=== PATIENT | male | born 1955 | race Caucasian/White ===

== ENCOUNTER 2016-11-22 03:26 | Emergency (ER) | payer OTHER ==
[2016-11-22] MEDS ORDERED: BENADRYL ONE (03:36)
[2016-11-22] MEDS ORDERED: DECADRON ONE ×2 (03:36→03:37)
[2016-11-22] MEDS ORDERED: PEPCID IV ONE ×2 (03:36→04:15)
[2016-11-22] MEDS ORDERED: BENADRYL IM ONE (04:13)
[2016-11-22] MEDS ORDERED: DECADRON IM ONE (04:14)
--- NOTE | 2016-11-22 08:15 | Emergency Department Report ---
ED ENT HPI - General Chief complaint: Dental/Oral Stated complaint: TONGUE SWELLING, COLD SYMPTOMS Time Seen by Provider: 11/22/16 07:43 Source: patient, family Mode of arrival: Ambulatory Limitations: No Limitations - History of Present Illness Initial comments: 61 y/o male complain of swollen tongue on arrived that has resolved with no difficulty in breathing .pt complain of having sinus pain across the frontal . and nasal congestion . Onset/Timin -: hour(s) - Related Data Home Medications Medication Instructions Recorded Confirmed Last Taken Hydralazine HCl [hydrALAZINE] 25 mg PO QDAY 10/25/14 01/05/15 01/05/15 Enalapril/Hydrochlorothiazide 5 mg PO DAILY 01/05/15 01/05/15 01/04/15 [Enalapril-Hctz 5-12.5 mg] Prednisone 40 mg PO 4XW 01/05/15 01/05/15 01/05/15 Pyridostigmine [Mestinon] 120 mg PO QID 01/05/15 01/05/15 01/04/15 Previous Rx's Medication Instructions Recorded Last Taken Type HYDROcodone/APAP 5-325 [[place] 1 each PO Q8HR PRN #20 tablet 01/05/15 Unknown Rx 5-325 mg TAB] SILVER sulfADIAZINE 400 GRAM 1 applicatio TP TID #1 jar 01/05/15 Unknown Rx [Thermazene 400 Gram] Albuterol Sulfate [Ventolin HFA] 2 puff IH Q4H PRN #1 hfa.aer.ad 11/15/15 Unknown Rx Azithromycin [Zithromax Z-ITALO] 1 dose PO DAILY 5 Days 11/15/15 Unknown Rx guaiFENesin/DEXTROMETHORPHAN 1 tab PO BID PRN #30 tab 11/15/15 Unknown Rx [Mucinex DM ER 600-30 mg TAB] Amoxicillin/K Clav Tab [Augmentin 1 tab PO Q12HR #14 tab 11/22/16 Unknown Rx 875 mg] Cimetidine (Nf) [Tagamet (Nf)] 400 mg PO BID #6 tablet 11/22/16 Unknown Rx predniSONE [Deltasone] 60 mg PO QDAY #3 tab 11/22/16 Unknown Rx Allergies Allergy/AdvReac Type Severity Reaction Status Date / Time zolpidem tartrate Allergy Severe Swelling, Verified 05/06/16 07:04 [From Ambien] BAD MENTAL REACTION ED Dental HPI - General Chief complaint: Dental/Oral Stated complaint: TONGUE SWELLING, COLD SYMPTOMS Time Seen by Provider: 11/22/16 07:43 Source: patient, family Mode of arrival: Ambulatory Limitations: No Limitations - Related Data Home Medications Medication Instructions Recorded Confirmed Last Taken Hydralazine HCl [hydrALAZINE] 25 mg PO QDAY 10/25/14 01/05/15 01/05/15 Enalapril/Hydrochlorothiazide 5 mg PO DAILY 01/05/15 01/05/15 01/04/15 [Enalapril-Hctz 5-12.5 mg] Prednisone 40 mg PO 4XW 01/05/15 01/05/15 01/05/15 Pyridostigmine [Mestinon] 120 mg PO QID 01/05/15 01/05/15 01/04/15 Previous Rx's Medication Instructions Recorded Last Taken Type HYDROcodone/APAP 5-325 [[place] 1 each PO Q8HR PRN #20 tablet 01/05/15 Unknown Rx 5-325 mg TAB] SILVER sulfADIAZINE 400 GRAM 1 applicatio TP TID #1 jar 01/05/15 Unknown Rx [Thermazene 400 Gram] Albuterol Sulfate [Ventolin HFA] 2 puff IH Q4H PRN #1 hfa.aer.ad 11/15/15 Unknown Rx Azithromycin [Zithromax Z-ITALO] 1 dose PO DAILY 5 Days 11/15/15 Unknown Rx guaiFENesin/DEXTROMETHORPHAN 1 tab PO BID PRN #30 tab 11/15/15 Unknown Rx [Mucinex DM ER 600-30 mg TAB] Amoxicillin/K Clav Tab [Augmentin 1 tab PO Q12HR #14 tab 11/22/16 Unknown Rx 875 mg] Cimetidine (Nf) [Tagamet (Nf)] 400 mg PO BID #6 tablet 11/22/16 Unknown Rx predniSONE [Deltasone] 60 mg PO QDAY #3 tab 11/22/16 Unknown Rx Allergies Allergy/AdvReac Type Severity Reaction Status Date / Time zolpidem tartrate Allergy Severe Swelling, Verified 05/06/16 07:04 [From Ambien] BAD MENTAL REACTION ED Review of Systems ROS: Stated complaint: TONGUE SWELLING, COLD SYMPTOMS Other details as noted in HPI Constitutional: denies: chills, fever Eyes: denies: eye pain, eye discharge, vision change ENT: congestion. denies: ear pain, throat pain Respiratory: denies: cough, shortness of breath, wheezing Cardiovascular: denies: chest pain, palpitations Endocrine: no symptoms reported Gastrointestinal: denies: abdominal pain, nausea, diarrhea Genitourinary: denies: urgency, dysuria Musculoskeletal: denies: back pain, joint swelling, arthralgia Skin: denies: rash, lesions Neurological: headache. denies: weakness, paresthesias Psychiatric: denies: anxiety, depression Hematological/Lymphatic: denies: easy bleeding, easy bruising ED Past Medical Hx - Past Medical History Previous Medical History?: Yes Hx Hypertension: Yes Hx CVA: No Hx Diabetes: No Hx Renal Disease: No Hx Arthritis: No Hx Seizures: No Hx Asthma: No Additional medical history: Myasthenia gravis - Surgical History Past Surgical History?: Yes Hx Pacemaker: No Additional Surgical History: myasthenia gravis surgery - Social History Smoking Status: Current Every Day Smoker Substance Use Type: None - Medications Home Medications: Home Medications Medication Instructions Recorded Confirmed Last Taken Type Hydralazine HCl [hydrALAZINE] 25 mg PO QDAY 10/25/14 01/05/15 01/05/15 History Enalapril/Hydrochlorothiazide 5 mg PO DAILY 01/05/15 01/05/15 01/04/15 History [Enalapril-Hctz 5-12.5 mg] HYDROcodone/APAP 5-325 [[place] 1 each PO Q8HR PRN #20 tablet 01/05/15 Unknown Rx 5-325 mg TAB] Prednisone 40 mg PO 4XW 01/05/15 01/05/15 01/05/15 History Pyridostigmine [Mestinon] 120 mg PO QID 01/05/15 01/05/15 01/04/15 History SILVER sulfADIAZINE 400 GRAM 1 applicatio TP TID #1 jar 01/05/15 Unknown Rx [Thermazene 400 Gram] Albuterol Sulfate [Ventolin HFA] 2 puff IH Q4H PRN #1 hfa.aer.ad 11/15/15 Unknown Rx Azithromycin [Zithromax Z-ITALO] 1 dose PO DAILY 5 Days 01/01/16 Unknown Rx guaiFENesin/DEXTROMETHORPHAN 1 tab PO BID PRN #30 tab 11/15/15 Unknown Rx [Mucinex DM ER 600-30 mg TAB] Amoxicillin/K Clav Tab [Augmentin 1 tab PO Q12HR #14 tab 11/22/16 Unknown Rx 875 mg] Cimetidine (Nf) [Tagamet (Nf)] 400 mg PO BID #6 tablet 11/22/16 Unknown Rx predniSONE [Deltasone] 60 mg PO QDAY #3 tab 11/22/16 Unknown Rx ED Physical Exam - General Limitations: No Limitations General appearance: alert, in no apparent distress - Head Head exam: Present: atraumatic, normocephalic - Eye Eye exam: Present: normal appearance, PERRL Pupils: Present: normal accommodation - ENT ENT exam: Present: mucous membranes moist - Expanded ENT Exam Expanded TM/Canal exam: Effusion: Right TM, Mastoid Tenderness: Right TM, Left TM ( frontal ) Mouth exam: Present: normal external inspection, tongue normal. Absent: drooling, trismus, muffled voice, tongue elevation Throat exam: Positive: tonsillar erythema, other (post nasal drip ) - Neck Neck exam: Present: normal inspection - Respiratory Respiratory exam: Present: normal lung sounds bilaterally. Absent: respiratory distress - Cardiovascular Cardiovascular Exam: Present: regular rate, normal rhythm. Absent: systolic murmur, diastolic murmur, rubs, gallop - GI/Abdominal GI/Abdominal exam: Present: soft, normal bowel sounds - Rectal Rectal exam: Present: deferred - Extremities Exam Extremities exam: Present: normal inspection - Back Exam Back exam: Present: normal inspection - Neurological Exam Neurological exam: Present: alert, oriented X3 - Psychiatric Psychiatric exam: Present: normal affect, normal mood - Skin Skin exam: Present: warm, dry, intact, normal color. Absent: rash ED Course Vital Signs 11/22/16 03:30 Temperature 97.7 F Pulse Rate 61 Respiratory 20 Rate Blood Pressure 145/81 O2 Sat by Pulse 98 Oximetry ED Medical Decision Making - Medical Decision Making allergic reaction resolved after given Decadron , Pepcid,and benadryl in triage sinusitis pt state he was treated in the past for sinusitis Critical care attestation.: If time is entered above; I have spent that time in minutes in the direct care of this critically ill patient, excluding procedure time. ED Disposition Clinical Impression: Allergic reaction Qualifiers: Encounter type: initial encounter Qualified Code(s): T78.40XA - Allergy, unspecified, initial encounter Sinusitis Qualifiers: Sinusitis location: frontal Chronicity: acute Recurrence: recurrent Qualified Code(s): J01.11 - Acute recurrent frontal sinusitis Disposition: DISCHARGED TO HOME OR SELFCARE Is pt being admited?: No Does the pt Need Aspirin: No Condition: Stable Instructions: Sinusitis (ED) Additional Instructions: follow up with primary care doctor Prescriptions: Amoxicillin/K Clav Tab [Augmentin 875 mg] 1 tab PO Q12HR #14 tab predniSONE [Deltasone] 60 mg PO QDAY #3 tab Cimetidine (Nf) [Tagamet (Nf)] 400 mg PO BID #6 tablet Time of Disposition: 08:24
[2016-11-22 08:35] VITALS: BP 145/85
== END 2016-11-22 08:35 | disposition home or self-care (01) ==
LOC: ED 03:26
DX: T78.40XA Allergy, unspecified, initial encounter (principal); J01.11 Acute recurrent frontal sinusitis; X58.XXXA Exposure to other specified factors, initial encounter; I10 Essential (primary) hypertension; F17.200 Nicotine dependence, unspecified, uncomplicated; Z88.8 Allergy status to other drugs, medicaments and biological substances
CPT/HCPCS: 96372; 96374; 99282; J1100; J1200

== ENCOUNTER 2017-05-22 14:14 | Inpatient (IN) | payer OTHER ==
[2017-05-22] MEDS ORDERED: NACL 0.9% 1000 ML 1,000 ML IV ONE (14:21)
[2017-05-22 14:39] LABS: Basophils % (Auto) 0.7 % (0.0-1.8); Eosinophils % (Auto) 3.8 % (0.0-4.3); Hematocrit 42.9 % (35.5-45.6); Hemoglobin 14.5 gm/dl (11.8-15.2); Mean Corpuscular HGB Conc 34 % (32-34); Mean Corpuscular Hemoglobin 34 pg (28-32); Mean Corpuscular Volume 101 fl (84-94); Platelet Count 207 K/mm3 (140-440); Red Blood Count 4.24 M/mm3 (3.65-5.03); Red Cell Distribution Width 17.7 % (13.2-15.2); White Blood Count 6.8 K/mm3 (4.5-11.0)
[2017-05-22 14:48] LABS: INR 1.86 (0.87-1.13)
[2017-05-22 14:49] LABS: Partial Thromboplastin Time 50.4 Sec. (24.2-36.6)
[2017-05-22 15:35] LABS: Alanine Aminotransferase 14 units/L (7-56); Albumin 4.4 g/dL (3.9-5); Albumin/Globulin Ratio 1.4 %; Alkaline Phosphatase 111 units/L (35-129); Anion Gap 18 mmol/L; Blood Urea Nitrogen 19 mg/dL (9-20); Calcium 9.4 mg/dL (8.4-10.2); Carbon Dioxide 26 mmol/L (22-30); Chloride 101.9 mmol/L (98-107); Glucose 96 mg/dL (75-100); Lipase 49 units/L (13-60); Potassium 4.9 mmol/L (3.6-5.0); Sodium 141 mmol/L (137-145); Total Protein 7.6 g/dL (6.3-8.2)
--- NOTE | 2017-05-22 16:14 | Emergency Department Report ---
ED GI Bleed HPI - General Chief complaint: GI Bleed Stated complaint: RECTAL BLEEDING Time Seen by Provider: 05/22/17 16:01 Source: patient Mode of arrival: Ambulatory Limitations: No Limitations - History of Present Illness Initial comments: Patient is a 62-year-old male with a history of A. fib on Xarelto here with a lower GI bleed. Patient had a colonoscopy which showed internal hemorrhoids and multiple diverticuli without diverticulitis on . He started bleeding today. He is not having any lightheadedness or dizziness. He denies abdominal pain. He has no fevers. He appears otherwise well. He was unable to tell me how many episodes but says it has been several. complaint: gross hematochezia -: Sudden Radiation: none Quality: painless Consistency: intermittent Improves with: none Worsens with: none Context: blood thinners Associated Symptoms: denies other symptoms. denies: abdominal pain, nausea, vomiting, loss of appetite, malaise, easy bruising, rash, syncope, weakness, other - Related Data Home Medications Medication Instructions Recorded Confirmed Last Taken Hydralazine HCl [hydrALAZINE] 25 mg PO QDAY 10/25/14 01/05/15 01/05/15 Enalapril/Hydrochlorothiazide 5 mg PO DAILY 01/05/15 01/05/15 01/04/15 [Enalapril-Hctz 5-12.5 mg] Prednisone 40 mg PO 4XW 01/05/15 01/05/15 01/05/15 Pyridostigmine [Mestinon] 120 mg PO QID 01/05/15 01/05/15 01/04/15 Previous Rx's Medication Instructions Recorded Last Taken Type HYDROcodone/APAP 5-325 [[place] 1 each PO Q8HR PRN #20 tablet 01/05/15 Unknown Rx 5-325 mg TAB] SILVER sulfADIAZINE 400 GRAM 1 applicatio TP TID #1 jar 01/05/15 Unknown Rx [Thermazene 400 Gram] Albuterol Sulfate [Ventolin HFA] 2 puff IH Q4H PRN #1 hfa.aer.ad 11/15/15 Unknown Rx Azithromycin [Zithromax Z-ITALO] 1 dose PO DAILY 5 Days 11/15/15 Unknown Rx guaiFENesin/DEXTROMETHORPHAN 1 tab PO BID PRN #30 tab 11/15/15 Unknown Rx [Mucinex DM ER 600-30 mg TAB] Amoxicillin/K Clav Tab [Augmentin 1 tab PO Q12HR #14 tab 11/22/16 Unknown Rx 875 mg] Cimetidine (Nf) [Tagamet (Nf)] 400 mg PO BID #6 tablet 11/22/16 Unknown Rx predniSONE [Deltasone] 60 mg PO QDAY #3 tab 11/22/16 Unknown Rx Allergies Allergy/AdvReac Type Severity Reaction Status Date / Time zolpidem tartrate Allergy Severe Swelling, Verified 05/06/16 07:04 [From Ebony] BAD MENTAL REACTION ED Review of Systems ROS: Stated complaint: RECTAL BLEEDING Other details as noted in HPI Comment: All other systems reviewed and negative Constitutional: denies: chills, fever, malaise Respiratory: denies: cough, orthopnea Cardiovascular: denies: chest pain, palpitations Gastrointestinal: denies: abdominal pain, nausea, constipation, hematemesis Musculoskeletal: denies: back pain, arthralgia Skin: denies: rash, change in hair/nails Neurological: denies: headache, weakness ED Past Medical Hx - Past Medical History Previous Medical History?: Yes Hx Hypertension: Yes Hx CVA: No Hx Diabetes: No Hx Renal Disease: No Hx Arthritis: No Hx Seizures: No Hx Asthma: No Additional medical history: Myasthenia gravis - Surgical History Past Surgical History?: Yes Hx Pacemaker: No Additional Surgical History: myasthenia gravis surgery, Colonoscopy - Family History Family history: no significant - Social History Smoking Status: Current Every Day Smoker Substance Use Type: Prescribed - Medications Home Medications: Home Medications Medication Instructions Recorded Confirmed Last Taken Type Hydralazine HCl [hydrALAZINE] 25 mg PO QDAY 10/25/14 01/05/15 01/05/15 History Enalapril/Hydrochlorothiazide 5 mg PO DAILY 01/05/15 01/05/15 01/04/15 History [Enalapril-Hctz 5-12.5 mg] HYDROcodone/APAP 5-325 [[place] 1 each PO Q8HR PRN #20 tablet 01/05/15 Unknown Rx 5-325 mg TAB] Prednisone 40 mg PO 4XW 01/05/15 01/05/15 01/05/15 History Pyridostigmine [Mestinon] 120 mg PO QID 01/05/15 01/05/15 01/04/15 History SILVER sulfADIAZINE 400 GRAM 1 applicatio TP TID #1 jar 01/05/15 Unknown Rx [Thermazene 400 Gram] Albuterol Sulfate [Ventolin HFA] 2 puff IH Q4H PRN #1 hfa.aer.ad 11/15/15 Unknown Rx Azithromycin [Zithromax Z-ITALO] 1 dose PO DAILY 5 Days 11/15/15 Unknown Rx guaiFENesin/DEXTROMETHORPHAN 1 tab PO BID PRN #30 tab 11/15/15 Unknown Rx [Mucinex DM ER 600-30 mg TAB] Amoxicillin/K Clav Tab [Augmentin 1 tab PO Q12HR #14 tab 11/22/16 Unknown Rx 875 mg] Cimetidine (Nf) [Tagamet (Nf)] 400 mg PO BID #6 tablet 11/22/16 Unknown Rx predniSONE [Deltasone] 60 mg PO QDAY #3 tab 11/22/16 Unknown Rx ED Physical Exam - General Limitations: No Limitations General appearance: alert, in no apparent distress - Head Head exam: Present: atraumatic, normocephalic - Eye Eye exam: Present: normal appearance - ENT ENT exam: Present: mucous membranes moist - Neck Neck exam: Present: normal inspection - Respiratory Respiratory exam: Present: normal lung sounds bilaterally. Absent: respiratory distress - Cardiovascular Cardiovascular Exam: Present: regular rate, normal rhythm. Absent: systolic murmur, diastolic murmur, rubs, gallop - GI/Abdominal GI/Abdominal exam: Present: soft, normal bowel sounds - Rectal Rectal exam: Present: deferred - Extremities Exam Extremities exam: Present: normal inspection - Back Exam Back exam: Present: normal inspection - Neurological Exam Neurological exam: Present: alert, oriented X3 - Psychiatric Psychiatric exam: Present: normal affect, normal mood - Skin Skin exam: Present: warm, dry, intact, normal color. Absent: rash ED Course Vital Signs 05/22/17 14:18 Temperature 98.7 F Pulse Rate 47 L Respiratory 20 Rate Blood Pressure 168/82 O2 Sat by Pulse 98 Oximetry ED Medical Decision Making - Lab Data Result diagrams: 05/22/17 14:26 05/22/17 14:26 Labs 05/22/17 05/22/17 05/22/17 14:25 14:26 14:26 WBC 6.8 RBC 4.24 Hgb 14.5 Hct 42.9 MCV 101 H MCH 34 H MCHC 34 RDW 17.7 H Plt Count 207 Lymph % (Auto) 16.0 [place] % (Auto) 9.2 H Eos % (Auto) 3.8 Baso % (Auto) 0.7 Lymph # 1.1 L [place] # 0.6 Eos # 0.3 Baso # 0.0 Seg Neutrophils % 70.3 H Seg Neutrophils # 4.8 PT 22.4 H INR 1.86 H APTT 50.4 H Sodium Potassium Chloride Carbon Dioxide Anion Gap BUN Creatinine Estimated GFR BUN/Creatinine Ratio Glucose Calcium Total Bilirubin AST ALT Alkaline Phosphatase Total Protein Albumin Albumin/Globulin Ratio Lipase Blood Type O POSITIVE Antibody Screen TNR 05/22/17 14:26 WBC RBC Hgb Hct MCV MCH MCHC RDW Plt Count Lymph % (Auto) [place] % (Auto) Eos % (Auto) Baso % (Auto) Lymph # [place] # Eos # Baso # Seg Neutrophils % Seg Neutrophils # PT INR APTT Sodium 141 Potassium 4.9 Chloride 101.9 Carbon Dioxide 26 Anion Gap 18 BUN 19 Creatinine 1.0 Estimated GFR > 60 BUN/Creatinine Ratio 19.00 Glucose 96 Calcium 9.4 Total Bilirubin 0.80 AST 30 ALT 14 Alkaline Phosphatase 111 Total Protein 7.6 Albumin 4.4 Albumin/Globulin Ratio 1.4 Lipase 49 Blood Type Antibody Screen - Medical Decision Making 62-year-old male with a history of anticoagulation with lower GI bleed. Has had several episodes today. Last episode just prior to arrival. He is hemodynamically stable and has a stable hemoglobin and hematocrit. Plan to observe in the ER for the next hour to 2 hours and will reassess. Critical care attestation.: If time is entered above; I have spent that time in minutes in the direct care of this critically ill patient, excluding procedure time. ED Disposition Clinical Impression: GI bleed, Atrial fibrillation Disposition: OP ADMIT IP TO THIS HOSP Is pt being admited?: Yes Condition: Stable
--- NOTE | 2017-05-22 16:32 | History and Physical Report ---
History of Present Illness Chief complaint: I see blood in the toilet History of present illness: 62 YO Male with A Fib on Anticoagulation, HTN, Diverticulosis, Internal Hemorrhoids, Myasthenia Gravis, Nicotine Dependence presents to ED for evaluation. Pt states that he has experienced approximately 5-7 episodes BRBPR over the past 1 day, with worsening bleeding over the past 3 hours. Pt denies fever, chills, CP, Palpitations, NVD, Syncope, Abdominal pain, consumption of food/water from new or different sources, syncope, or recent ill contacts. Past History Past Medical History: atrial fib, hypertension, other (MG, Nicotine Dependence) Past Surgical History: Other (colonoscopy) Social history: , lives with family, smoking. denies: alcohol abuse, prescription drug abuse Family history: no significant family history, other (reviewed) Medications and Allergies Allergies Allergy/AdvReac Type Severity Reaction Status Date / Time zolpidem tartrate Allergy Severe Swelling, Verified 05/06/16 07:04 [From Ambien] BAD MENTAL REACTION Home Medications Medication Instructions Recorded Confirmed Last Taken Type Hydralazine HCl [hydrALAZINE] 25 mg PO QDAY 10/25/14 01/05/15 01/05/15 History Enalapril/Hydrochlorothiazide 5 mg PO DAILY 01/05/15 01/05/15 01/04/15 History [Enalapril-Hctz 5-12.5 mg] HYDROcodone/APAP 5-325 [[place] 1 each PO Q8HR PRN #20 tablet 01/05/15 Unknown Rx 5-325 mg TAB] Prednisone 40 mg PO 4XW 01/05/15 01/05/15 01/05/15 History Pyridostigmine [Mestinon] 120 mg PO QID 01/05/15 01/05/15 01/04/15 History SILVER sulfADIAZINE 400 GRAM 1 applicatio TP TID #1 jar 01/05/15 Unknown Rx [Thermazene 400 Gram] Albuterol Sulfate [Ventolin HFA] 2 puff IH Q4H PRN #1 hfa.aer.ad 11/15/15 Unknown Rx Azithromycin [Zithromax Z-ITALO] 1 dose PO DAILY 5 Days 11/15/15 Unknown Rx guaiFENesin/DEXTROMETHORPHAN 1 tab PO BID PRN #30 tab 11/15/15 Unknown Rx [Mucinex DM ER 600-30 mg TAB] Amoxicillin/K Clav Tab [Augmentin 1 tab PO Q12HR #14 tab 11/22/16 Unknown Rx 875 mg] Cimetidine (Nf) [Tagamet (Nf)] 400 mg PO BID #6 tablet 11/22/16 Unknown Rx predniSONE [Deltasone] 60 mg PO QDAY #3 tab 11/22/16 Unknown Rx Active Meds: Active Medications Sodium Chloride (Nacl 0.9% 1000 Ml) 1,000 mls @ 250 mls/hr IV ONCE ONE Stop: 05/22/17 18:20 Review of Systems All systems: negative Constitutional: other (rectal bleeding) Exam - Constitutional Vitals: Temp Pulse Resp BP Pulse Ox 98.7 F 47 L 20 168/82 98 05/22/17 14:18 05/22/17 14:18 05/22/17 14:18 05/22/17 14:18 05/22/17 14:18 General appearance: Present: mild distress - EENT Eyes: Present: PERRL ENT: hearing intact, clear oral mucosa - Neck Neck: Present: supple, normal ROM - Respiratory Respiratory effort: normal Respiratory: bilateral: CTA - Cardiovascular Rhythm: irregularly irregular Heart Sounds: Present: S1 & S2. Absent: rub, click - Extremities Extremities: pulses symmetrical, No edema Peripheral Pulses: within normal limits - Abdominal General gastrointestinal: Present: soft, non-tender, non-distended, normal bowel sounds Male genitourinary: Present: normal - Rectal Rectal Exam: other (blood in the rectal vault) - Integumentary Integumentary: Present: clear, dry - Musculoskeletal Musculoskeletal: gait normal, strength equal bilaterally - Psychiatric Psychiatric: appropriate mood/affect, intact judgment & insight - Neurologic Neurologic: CNII-XII intact, moves all extremities Results - Labs CBC & Chem 7: 05/22/17 14:26 05/22/17 14:26 Labs: Abnormal lab results 05/22/17 05/22/17 Range/Units 14:26 14:26 MCV 101 H (84-94) fl MCH 34 H (28-32) pg RDW 17.7 H (13.2-15.2) % [place] % (Auto) 9.2 H (0.0-7.3) % Lymph # 1.1 L (1.2-5.4) K/mm3 Seg Neutrophils % 70.3 H (40.0-70.0) % PT 22.4 H (12.2-14.9) Sec. INR 1.86 H (0.87-1.13) APTT 50.4 H (24.2-36.6) Sec. Assessment and Plan - Patient Problems (1) GI bleed Current Visit: Yes Status: Acute Qualifiers: GI bleed type/associated pathology: G Gastritis type: G Plan to address problem: IV ppi therapy, serial physical exam, repeat cbc, no transfusion at this time. (2) Accelerated hypertension Current Visit: Yes Status: Acute Plan to address problem: monitor bp q shift, supportive care. (3) Atrial fibrillation Current Visit: Yes Status: Acute Qualifiers: Atrial fibrillation type: A Plan to address problem: rate controlled, hold anticoagulation for now, secondary to GI bleeding (4) Nicotine dependence Current Visit: Yes Status: Acute Qualifiers: Nicotine product type: N Substance use status: in withdrawal Plan to address problem: supportive care, (5) DVT prophylaxis Current Visit: Yes Status: Acute
[2017-05-22] MEDS ORDERED: ZOFRAN IV PRN (16:38)
[2017-05-22] MEDS ORDERED: MILK OF MAGNESIA PO PRN (16:38)
[2017-05-22] MEDS ORDERED: DULCOLAX PR PRN (16:38)
[2017-05-22] MEDS ORDERED: DUONEB *Not for PRN Use IH (16:38)
[2017-05-22] MEDS ORDERED: TYLENOL PO PRN (16:38)
[2017-05-22] MEDS ORDERED: NORCO 5/325 PO PRN (16:41)
[2017-05-22] MEDS ORDERED: DEXTROMETHORPHAN PO PRN (16:41)
[2017-05-22] MEDS ORDERED: GUAIFENESIN PO PRN (16:41)
[2017-05-22] MEDS ORDERED: PROVENTIL IH PRN (17:05)
[2017-05-22] MEDS ORDERED: MUCINEX ER PO PRN (17:26)
[2017-05-22] MEDS ORDERED: TYLENOL ONE (18:02)
[2017-05-22] MEDS: MESTINON PO SCH (23:18)
[2017-05-22] MEDS: PROTONIX IV SCH (23:21)
[2017-05-22] MEDS: THERMAZENE 50 GRAM TP SCH (23:35)
[2017-05-23] MEDS ORDERED: DESYREL PO ONE (00:45)
[2017-05-23 05:21] LABS: Basophils % (Auto) 0.6 % (0.0-1.8); Eosinophils % (Auto) 6.2 % (0.0-4.3); Hematocrit 40.9 % (35.5-45.6); Hemoglobin 13.8 gm/dl (11.8-15.2); Mean Corpuscular HGB Conc 34 % (32-34); Mean Corpuscular Hemoglobin 35 pg (28-32); Mean Corpuscular Volume 102 fl (84-94); Platelet Count 195 K/mm3 (140-440); Red Blood Count 3.99 M/mm3 (3.65-5.03); Red Cell Distribution Width 17.8 % (13.2-15.2); White Blood Count 6.5 K/mm3 (4.5-11.0)
[2017-05-23] MEDS ORDERED: HYDROCHLOROTHIAZIDE PO SCH (10:00)
[2017-05-23] MEDS ORDERED: DELTASONE PO SCH ×2 (10:00)
[2017-05-23] MEDS ORDERED: HCTZ PO SCH (10:00)
[2017-05-23] MEDS ORDERED: ENALAPRIL PO SCH (10:00)
[2017-05-23] MEDS ORDERED: ZESTRIL PO SCH (10:00)
[2017-05-23] MEDS ORDERED: NON-FORMULARY (Hydralazine Hcl [Apresoline Tab] 25 MG) PO SCH (10:00)
[2017-05-23] MEDS ORDERED: APRESOLINE PO SCH (10:00)
--- NOTE | 2017-05-23 10:22 | Gastroenterology Consultation ---
History of Present Illness - Reason for Consult Consult date: 05/23/17 rectal bleeding Requesting physician: MARGARITO PRUETT - History of Present Illness 62 yo male presents 1 day rectal bleeding. Pt s/p recent colonoscopy w/o bx's, restarted Xarelto 1 day ago and had 2 bouts brbpr none since. Reports no constipation or straining. Reports no nausea, vomiting, gerd or dysphagia. Denies other GI symptoms. Past History Past Medical History: atrial fib, hypertension, other (MG, Nicotine Dependence) Past Surgical History: Other (colonoscopy) Social history: , lives with family, smoking. denies: alcohol abuse, prescription drug abuse Family history: no significant family history, other (reviewed) Medications and Allergies Allergies Allergy/AdvReac Type Severity Reaction Status Date / Time zolpidem tartrate Allergy Severe Swelling, Verified 05/06/16 07:04 [From [place]] BAD MENTAL REACTION Home Medications Medication Instructions Recorded Confirmed Last Taken Type Diphenoxylat-Atrop 2.5-0.025/5 1 tab PO DAILY 05/22/17 05/22/17 Unknown History Finasteride [Proscar] 5 mg PO DAILY 05/22/17 05/22/17 Unknown History Lisinopril [Zestril TAB] 5 mg PO DAILY 05/22/17 05/22/17 Unknown History Metoprolol Tartrate [Metoprolol 25 mg PO DAILY 05/22/17 05/22/17 Unknown History Tartrate] Prednisone [predniSONE (Dm) ER 5 mg PO DAILY 05/22/17 05/22/17 Unknown History TAB] Pyridostigmine [Mestinon] 60 mg PO DAILY 05/22/17 05/22/17 Unknown History Xarelto 20 mg PO DAILY 05/22/17 05/22/17 Unknown History azaTHIOprine [azaTHIOprine] 50 mg PO BID 05/22/17 05/22/17 Unknown History traZODone [Desyrel] 50 mg PO DAILY 05/22/17 05/22/17 Unknown History Active Meds: Active Medications Acetaminophen (Tylenol) 650 mg PO Q4H PRN PRN Reason: Pain MILD(1-3)/Fever >100.5/[place] Acetaminophen/Hydrocodone Bitart ([place] 5/325) 1 each PO Q8HR PRN PRN Reason: Pain Albuterol (Proventil) 2.5 mg IH Q4HRT PRN PRN Reason: Shortness Of Breath Bisacodyl (Dulcolax) 10 mg [place] QDAY PRN PRN Reason: Constipation unrelieved by MOM Guaifenesin (Mucinex Er) 600 mg PO BID PRN PRN Reason: COUGH / CONGESTION Hydralazine HCl (Apresoline) 25 mg PO QDAY [facility] Hydrochlorothiazide (Hctz) 12.5 mg PO QDAY [facility] Lisinopril (Zestril) 5 mg PO QDAY [facility] Magnesium Hydroxide (Milk Of Magnesia) 30 ml PO Q4H PRN PRN Reason: Constipation Ondansetron HCl (Zofran) 4 mg IV Q8H PRN PRN Reason: N/V unrelieved by Reglan Pantoprazole Sodium (Protonix) 40 mg IV BID [facility] Last Admin: 05/22/17 23:21 Dose: 40 mg Prednisone (Deltasone) 60 mg PO DAILY [facility] Pyridostigmine [place] (Mestinon) 120 mg PO QID [facility] Last Admin: 05/22/17 23:18 Dose: 120 mg Silver Sulfadiazine (Thermazene 50 Gram) 1 applic TP TID [facility] Last Admin: 05/22/17 23:35 Dose: Not Given Review of Systems - Review of Systems Gastrointestinal: hematochezia (all other pioints 13 point review of system benign) Exam - Constitutional Vital Signs: Temp Pulse Resp BP Pulse Ox 97.7 F 47 L 16 158/72 97 05/23/17 04:00 05/23/17 04:00 05/23/17 04:00 05/23/17 04:00 05/23/17 09:04 General appearance: no acute distress - EENT ENT: hearing intact - Respiratory Respiratory: bilateral: CTA - Cardiovascular Rhythm: regular Heart Sounds: Present: S1 & S2 - Gastrointestinal General gastrointestinal: Present: soft, non-tender, non-distended - Labs CBC & Chem 7: 05/23/17 04:51 05/22/17 14:26 Lab Results: Laboratory Results - last 24 hr 05/23/17 04:51 WBC 6.5 RBC 3.99 Hgb 13.8 Hct 40.9 MCV 102 H MCH 35 H MCHC 34 RDW 17.8 H Plt Count 195 Lymph % (Auto) 24.6 [place] % (Auto) 12.7 H Eos % (Auto) 6.2 H Baso % (Auto) 0.6 Lymph # 1.6 [place] # 0.8 Eos # 0.4 Baso # 0.0 Seg Neutrophils % 55.9 Seg Neutrophils # 3.6 Assessment and Plan GI: pt with bout rectal bleeding with stable h/h after recent colonoscopy showing hemorrhoids - suspect mild hemorrhoidal bleeding - given stable h/h and no further bleeding no need scope or other input at this time - ok to d/c today from GI standpoint - call if needed
--- NOTE | 2017-05-23 10:47 | Discharge Summary ---
Providers - Providers Date of Admission: 05/22/17 16:38 Date of discharge: 05/23/17 Attending physician: NACHO CODY 05/23/17 07:35 Consult to Physician [CONS] Routine Consulting Provider: JUANJO SHULTZ Reason For Exam: GI bleed, on anticoagulation Place consult to:: [facility] Notified:: Katia Phone number called:: [phone] Was contact made?: Yes If yes, spoke with:: Katia Time called:: 09:30 Comment:: left message Primary care physician: [employer]MENT SPECIALIST Hospitalization Condition: Good Hospital course: Patient is 62-year-old with atrial fibrillation on Xarelto for anticoagulation, hemorrhoids and diverticulosis. He presents with bright red blood per rectum for 1 day. In Emergency department, hemoglobin was 14.5. Patient was on Xarelto this was discontinued and he was admitted for further management. He was evaluated by GI physician. repeat Hemoglobin was 13.8. With stable H&H, GI Physician noted patient probably have mild bleeding from hemorrhoids. He recommended patient may be discharged home to follow as an outpatient. He was stable and was therefore discharged home to follow as outpatient. Disposition: DC-01 TO HOME OR SELFCARE - Discharge Diagnoses (1) GI bleed Status: Acute Qualifiers: GI bleed type/associated pathology: G Gastritis type: G (2) Bleeding hemorrhoid Status: Acute (3) Diverticulosis Status: Acute Qualifiers: Diverticulosis site: D Diverticulosis bleeding: D (4) Atrial fibrillation Status: Chronic Qualifiers: Atrial fibrillation type: chronic Qualified Code(s): I48.2 - Chronic atrial fibrillation (5) HTN (hypertension), benign Status: Chronic (6) Myasthenia gravis Status: Acute Core Measure Documentation - Palliative Care Palliative Care/ Comfort Measures: Not Applicable - Core Measures Any of the following diagnoses?: none Exam - Constitutional Vitals: Temp Pulse Resp BP Pulse Ox 97.7 F 47 L 16 158/72 97 05/23/17 04:00 05/23/17 04:00 05/23/17 04:00 05/23/17 04:00 05/23/17 09:04 General appearance: Present: no acute distress - Respiratory Respiratory effort: normal Respiratory: bilateral: CTA - Abdominal General gastrointestinal: Present: soft Plan Activity: no restrictions Diet: low fat, low cholesterol, low salt, other (soft diet) Additional Instructions: 1.Follow up with PCP in 1 week Follow up with: PRIMARY CARE, [Primary Care Provider] - 3-5 Days Forms: Accompanied Note Prescriptions: Famotidine [Pepcid] 20 mg PO BID #30 tablet
[2017-05-23] MEDS: THERMAZENE 50 GRAM TP SCH (11:27)
[2017-05-23] MEDS: MESTINON PO SCH ×2 (11:29→11:30)
[2017-05-23] MEDS: PROTONIX IV SCH (11:31)
[2017-05-23 12:27] VITALS: BP 157/71
[2017-05-23] MEDS ORDERED: PROTONIX PO SCH (22:00)
== END 2017-05-23 13:25 | disposition home or self-care (01) | DRG 394 ==
LOC: ED 14:14 → 3A 16:38
PROVIDERS: ADMIT Internal Medicine; ATTEND Internal Medicine
DX: K64.8 Other hemorrhoids (principal); K92.2 Gastrointestinal hemorrhage, unspecified; I50.22 Chronic systolic (congestive) heart failure; I42.0 Dilated cardiomyopathy; F17.210 Nicotine dependence, cigarettes, uncomplicated; I48.2 Chronic atrial fibrillation; K57.90 Diverticulosis of intestine, part unspecified, without perforation or abscess without bleeding; G70.00 Myasthenia gravis without (acute) exacerbation; E11.9 Type 2 diabetes mellitus without complications; E78.5 Hyperlipidemia, unspecified; I44.1 Atrioventricular block, second degree; I11.0 Hypertensive heart disease with heart failure; Z88.8 Allergy status to other drugs, medicaments and biological substances; Z79.01 Long term (current) use of anticoagulants; Z79.51 Long term (current) use of inhaled steroids
CPT/HCPCS: 36415; 80053; 83690; 85025; 85610; 85730; 86850; 86870; 86900; 86901; 93005; 93010; C9113; J7512